=== PATIENT | male | born 1950 | race Caucasian/White ===

== ENCOUNTER 2018-05-24 06:33 | Observation (INO) | payer MEDICARE ==
[~2018-05-24] VITALS: Ht 182.9 cm; Wt 101.0 kg
[~2018-05-24 06:33] MED LIST: ALBU8.5H8 INH; AMLO10TA2 PO; ATOR20TA9 PO; AZEL137S4 NAS; CHLO25TA PO; DESO15CR21 TP; FAMO20TA37 PO; FLAX1000 PO; FLUT9.9S NAS; IBUP-1623 PO; KETO15CR2 TP; MOME13HF2 INH; MULT1TAB60 PO; TRIA15CR53 TP; VARD20TA2 PO; ZINC50TA28 PO; [UNRECOGNIZED DRUG - SUPPLY] TP
[2018-05-24] MEDS ORDERED: OXYcodone IR 5MG TABLET PO PRN (07:00)
[2018-05-24] MEDS ORDERED: SCOPOLAMINE PATCH, 1.5MG PATCH.TD72 TD ONE (07:00)
[2018-05-24] MEDS ORDERED: ONDANSETRON 2MG/ML, 2ML IV PRN (07:00)
[2018-05-24] MEDS ORDERED: MAGNESIUM HYDROXIDE 8%, 30ML UDC PO PRN (07:00)
[2018-05-24] MEDS ORDERED: ZOLPIDEM 5MG TABLET PO PRN (07:00)
[2018-05-24] MEDS ORDERED: DIPHENHYDRAMINE 25 MG CAPSULE PO PRN (07:00)
[2018-05-24] MEDS ORDERED: ACETAMINOPHEN 650 MG/20.3 ML UDC PO PRN (07:00)
[2018-05-24] MEDS: CHLORTHALIDONE 25 MG TABLET PO SCH (07:00)
[2018-05-24] MEDS ORDERED: BISACODYL 10 MG SUPP PR PRN (07:00)
[2018-05-24] MEDS ORDERED: HYDROmorphone 1 MG/ML, 1ML IV PRN ×2 (07:00→10:00)
[2018-05-24] MEDS ORDERED: SENNA/DOCUSATE TABLET PO PRN (07:00)
[2018-05-24] MEDS ORDERED: ONDANSETRON 4 MG TABLET PO PRN (07:00)
[2018-05-24] MEDS ORDERED: ALBUTEROL SULFATE 2.5 MG/3 ML HHN PRN (07:00)
[2018-05-24] MEDS ORDERED: LACTATED RINGERS 1,000 ML IV SCH (07:05)
[2018-05-24] MEDS ORDERED: TRANEXAMIC ACID 100 MG/ML, 10ML ONE ×2 (07:12)
[2018-05-24] MEDS ORDERED: ROPIvacaine/PF 0.5%, 30 ML ONE (07:12)
[2018-05-24] MEDS ORDERED: KETOROLAC 60 MG/2 ML ONE (07:12)
[2018-05-24] MEDS ORDERED: EPINEPHRINE 1 MG/ML, 1ML ONE (07:13)
[2018-05-24] MEDS ORDERED: VANCOMYCIN 1,000 MG ONE (07:13)
[2018-05-24] MEDS ORDERED: SODIUM CHLORIDE 0.9% 100 ML ONE (07:13)
[2018-05-24] MEDS ORDERED: GABAPENTIN 300 MG CAPSULE PO ONE (07:30)
[2018-05-24] MEDS ORDERED: ACETAMINOPHEN 500 MG TABLET PO ONE (07:30)
[2018-05-24] MEDS ORDERED: MIDAZOLAM 1 MG/ML, 2ML ONE (07:45)
[2018-05-24] MEDS ORDERED: FENTANYL PF 250 MCG/5ML ONE (07:45)
[2018-05-24] MEDS ORDERED: METOCLOPRAMIDE 10MG TABLET PO ONE (08:00)
[2018-05-24] MEDS ORDERED: FAMOTIDINE 20 MG TABLET PO ONE (08:00)
[2018-05-24] MEDS ORDERED: DIAZEPAM 5 MG TABLET PO ONE (08:00)
[2018-05-24] MEDS ORDERED: TAMSULOSIN 0.4 MG CAP.ER.24H PO ONE (08:00)
[2018-05-24] MEDS ORDERED: KETAMINE 50 MG/ML, 10ML ONE (08:30)
[2018-05-24] MEDS ORDERED: SUCCINYLCHOLINE 20 MG/ML, 10ML ONE (08:30)
[2018-05-24] MEDS ORDERED: ROCURONIUM 10 MG/ML,10ML ONE (08:30)
[2018-05-24] MEDS ORDERED: DEXAMETHASONE 4 MG/ML, 5ML ONE (08:30)
[2018-05-24] MEDS ORDERED: PROPOFOL 10 MG/ML, 20ML ONE (08:30)
[2018-05-24] MEDS ORDERED: CEFAZOLIN 1,000 MG ONE (08:30)
[2018-05-24] MEDS ORDERED: ONDANSETRON 2MG/ML, 2ML ONE (08:30)
[2018-05-24] MEDS: Azelastine Hcl Nasal 1 SPRAY) NAS SCH ×2 (09:00→21:00)
[2018-05-24] MEDS: FORMOTEROL INH SCH ×2 (09:00→21:00)
[2018-05-24] MEDS: DESONIDE TP SCH ×2 (09:00→21:00)
[2018-05-24] MEDS: AMLODIPINE 5 MG TABLET PO SCH (09:00)
[2018-05-24] MEDS: DOCUSATE 100 MG CAPSULE PO SCH ×2 (09:00→20:14)
[2018-05-24] MEDS: MOMETASONE INH SCH ×2 (09:00→21:00)
[2018-05-24] MEDS ORDERED: PROMETHAZINE 25 MG/ML, 1ML IV PRN (10:00)
[2018-05-24] MEDS ORDERED: MEPERIDINE/PF 25MG/0.5ML IVPush PRN (10:00)
[2018-05-24] MEDS ORDERED: DIAZEPAM 5 MG/ML, 2ML IVPush PRN (10:00)
[2018-05-24] MEDS ORDERED: OXYcodone 5 MG/5 ML ORAL.SOL UDC PO PRN (10:00)
[2018-05-24] MEDS ORDERED: ALBUTEROL SULFATE 2.5 MG/3 ML NPPB PRN (10:00)
[2018-05-24] MEDS ORDERED: FENTANYL PF 100 MCG/2ML ONE (10:26)
[2018-05-24] MEDS ORDERED: OXYcodone 5 MG/5 ML ORAL.SOL UDC ONE (10:26)
[2018-05-24] MEDS: FENTANYL PF 100 MCG/2ML IV PRN ×2 (10:29→10:34)
[2018-05-24] MEDS ORDERED: HYDROmorphone 2 MG/ML, 1ML ONE (10:44)
[2018-05-24] MEDS: NS + 20MEQ KCL 1,000 ML IV SCH (12:47)
[2018-05-24] MEDS: HYDROcodone/APAP 5/325 TABLET PO PRN ×2 (12:54→20:14)
[2018-05-24] MEDS ORDERED: CEFAZOLIN PMX 2GM/50ML 50 ML IVPB SCH (15:00)
[2018-05-24] MEDS ORDERED: CEFAZOLIN 2,000 MG in SODIUM CHLORIDE 0.9% 50 ML IVPB SCH (15:00)
[2018-05-24 15:25] VITALS: BP 108/66
[2018-05-24] MEDS: ASPIRIN 81 MG TABLET EC PO SCH (16:59)
[2018-05-24 20:00] VITALS: BP 110/72
[2018-05-24] MEDS ORDERED: ATORVASTATIN 20 MG TABLET PO SCH (21:00)
[2018-05-25 00:47] VITALS: BP 122/77
[2018-05-25] MEDS: NS + 20MEQ KCL 1,000 ML IV SCH (01:15)
[2018-05-25 04:04] VITALS: BP 129/77
[2018-05-25] MEDS ORDERED: DEXAMETHASONE 4 MG/ML, 1ML IVPush SCH (06:00)
[2018-05-25] MEDS: ASPIRIN 81 MG TABLET EC PO SCH (06:09)
[2018-05-25] MEDS: HYDROcodone/APAP 5/325 TABLET PO PRN (06:09)
[2018-05-25] MEDS: CHLORTHALIDONE 25 MG TABLET PO SCH (06:22)
[2018-05-25 07:33] VITALS: BP 117/79
[2018-05-25] MEDS: Azelastine Hcl Nasal 1 SPRAY) NAS SCH (09:00)
[2018-05-25] MEDS: DESONIDE TP SCH (09:00)
[2018-05-25] MEDS: FORMOTEROL INH SCH (09:00)
[2018-05-25] MEDS: MOMETASONE INH SCH (09:00)
[2018-05-25] MEDS ORDERED: OXYC5TAB2 PO (09:47)
[2018-05-25] MEDS: DOCUSATE 100 MG CAPSULE PO SCH (09:58)
[2018-05-25] MEDS ORDERED: MELO7.5T31 PO (09:59)
[2018-05-25] MEDS: AMLODIPINE 5 MG TABLET PO SCH (10:00)
[2018-05-25] MEDS ORDERED: TRAM50TA2 PO (10:00)
[2018-05-25] MEDS ORDERED: OXYC5CAP2 PO (10:00)
== END 2018-05-25 10:35 | disposition home or self-care (01) ==
LOC: OUT 06:33 → ORIP 06:43 → 4NOR 11:11
PROVIDERS: ADMIT Orthopaedic Surgery; ATTEND Orthopaedic Surgery
DX: M17.12 Unilateral primary osteoarthritis, left knee (principal); M65.9 Synovitis and tenosynovitis, unspecified; M23.304 Other meniscus derangements, unspecified medial meniscus, left knee; M23.301 Other meniscus derangements, unspecified lateral meniscus, left knee
CPT/HCPCS: 27447; 36415; 85014; 85018; 96365; 96375; 97161; 97165; C1713; C1776; G0378; G8978; G8979; G8980; J0171; J0330; J0690; J1100; J1170; J1885; J2250; J2405; J2704; J2795; J3010; J3370; J3480; J7120

== ENCOUNTER 2018-09-05 08:22 | Day surgery (SDC) | payer MEDICARE ==
[~2018-09-05] VITALS: Ht 182.9 cm; Wt 94.9 kg
[~2018-09-05 08:22] MED LIST changes: -AMLO10TA2 PO; +AMLO10TA6 PO; +ATOR20TA37 PO; -ATOR20TA9 PO; -FLAX1000 PO; +FLAX10004 PO; +MELO7.5T31 PO; +OXYC5CAP2 PO; +OXYC5TAB2 PO; +TRAM50TA2 PO; -ZINC50TA28 PO; +ZINC50TA44 PO
[2018-09-05 09:03] VITALS: BP 116/84
[2018-09-05] MEDS ORDERED: FENTANYL PF 100 MCG/2ML ONE ×2 (09:03→10:02)
[2018-09-05] MEDS ORDERED: MIDAZOLAM 1 MG/ML, 2ML ONE (09:03)
[2018-09-05] MEDS ORDERED: LACTATED RINGERS 1,000 ML IV SCH (09:13)
[2018-09-05] MEDS ORDERED: ONDANSETRON 2MG/ML, 2ML IV PRN (10:00)
[2018-09-05] MEDS ORDERED: LORazepam 2 MG/ML, 1ML IVPush PRN (10:00)
[2018-09-05] MEDS ORDERED: ONDANSETRON ODT 8 MG PO PRN (10:00)
[2018-09-05] MEDS ORDERED: PROMETHAZINE 25 MG/ML, 1ML IV PRN (10:00)
[2018-09-05] MEDS ORDERED: DIAZEPAM 5 MG/ML, 2ML IVPush PRN (10:00)
[2018-09-05] MEDS ORDERED: FENTANYL PF 100 MCG/2ML IV PRN (10:00)
[2018-09-05] MEDS ORDERED: MEPERIDINE/PF 25MG/0.5ML IVPush PRN (10:00)
[2018-09-05] MEDS ORDERED: HYDROmorphone 2 MG/ML, 1ML IVPush PRN (10:00)
[2018-09-05] MEDS ORDERED: ACETAMINOPHEN 325 MG TABLET PO PRN (10:00)
[2018-09-05] MEDS ORDERED: OXYcodone 5 MG/5 ML ORAL.SOL UDC PO PRN (10:00)
[2018-09-05] MEDS ORDERED: BUPIVACAINE/PF-EPI 0.5% 1:200K INFIL ONE (10:09)
[2018-09-05] MEDS ORDERED: KETOROLAC 30 MG/1 ML ONE (10:15)
[2018-09-05] MEDS ORDERED: CEFAZOLIN 1,000 MG ONE (10:16)
[2018-09-05] MEDS ORDERED: DEXAMETHASONE 4 MG/ML, 1ML ONE (10:16)
[2018-09-05] MEDS ORDERED: PROPOFOL 10 MG/ML, 20ML ONE (10:16)
[2018-09-05] MEDS ORDERED: ONDANSETRON 2MG/ML, 2ML ONE (10:16)
[2018-09-05] MEDS ORDERED: OXYcodone 5 MG/5 ML ORAL.SOL UDC ONE (11:36)
== END 2018-09-05 13:55 | disposition home or self-care (01) ==
LOC: OUT 08:22
PROVIDERS: ATTEND Surgery
DX: K40.90 Unilateral inguinal hernia, without obstruction or gangrene, not specified as recurrent (principal); D17.6 Benign lipomatous neoplasm of spermatic cord; J45.909 Unspecified asthma, uncomplicated; I10 Essential (primary) hypertension; Z98.890 Other specified postprocedural states; Z88.1 Allergy status to other antibiotic agents; Z88.8 Allergy status to other drugs, medicaments and biological substances; Z72.89 Other problems related to lifestyle
CPT/HCPCS: 49505; C1781; J0690; J1100; J1885; J2250; J2405; J2704; J3010; J7120

== ENCOUNTER → 2021-03-03 | Outpatient (CLI) | payer MEDICARE ==
[~2021-03-03] MED LIST changes: +AMLO-211 PO; -AMLO10TA6 PO; +KETO15CR17 TP; -KETO15CR2 TP; +MULT-449 PO; -MULT1TAB60 PO
== END | disposition home or self-care (01) ==
LOC: CFH 14:50
PROVIDERS: ATTEND Internal Medicine Geriatric Medicine
DX: R60.0 Localized edema (principal)